=== PATIENT | female | born 1960 | race Caucasian/White ===

== ENCOUNTER 2019-09-03 16:48 | Emergency (ER) | payer BC ==
[2019-09-03 17:26] LABS: ABSOLUTE EOSINOPHILS # (AUTO) 0.4 10^3/uL (0.0-0.6); ABSOLUTE LYMPHOCYTES (AUTO) 0.6 10^3/uL (0.5-4.7); ABSOLUTE MONOCYTES (AUTO) 0.7 10^3/uL (0.1-1.4); ABSOLUTE NEUT (AUTO) 3.9 10^3/uL (1.7-8.2); BASOPHILS % (AUTO) 0.6 % (0-2); EOSINOPHILS % (AUTO) 7.3 % (0-6); HEMATOCRIT 31.7 % (36.0-47.0); HEMOGLOBIN 10.8 g/dL (12.0-15.5); LYMPHOCYTES % (AUTO) 11.3 % (13-45); MEAN CORPUSCULAR HEMOGLOBIN 29.3 pg (27.0-33.4); MEAN CORPUSCULAR VOLUME 86 fl (80-97); PLATELET COUNT 529 10^3/uL (150-450); RED BLOOD COUNT 3.67 10^6/uL (3.72-5.28); SEGMENTED NEUTROPHILS % (AUTO) 68.8 % (42-78); TOTAL CELLS COUNTED % (AUTO) 100 %; WHITE BLOOD COUNT 5.7 10^3/uL (4.0-10.5)
--- NOTE | 2019-09-03 17:51 | ER Document Report ---
ED GI Bleed / Rectal Pain - General Chief Complaint: Rectal Bleeding Stated Complaint: RECTAL BLEED Time Seen by Provider: 09/03/19 16:59 Notes: HPI: Patient is a 58-year-old female that states for 4 weeks she has had some intermittent abdominal discomfort around the left umbilicus with some diarrhea. Patient had abdominal surgery one 1 year ago for an unknown procedure with Dr. Watts. She states it is mixed with blood. She states it hurts a little more with food. No history of inflammatory bowel disease. She denies fevers, back p ain, or dysuria. Patient 5 days ago went to an emergency department in [place] where she lives and had a hemoglobin that was unremarkable as well as a CT scan of the abdomen and pelvis. Patient states that it showed "similar to what I had before". She was discharged from the emergency department. She followed up with her surgeon the next day. She was placed on ciprofloxacin and Flagyl. She states she has been taking it only intermittently because it makes her nauseous. She states that her pain has not increased nor has of blood. But she is here visiting her daughter and thought she should get a "second opinion". She has an appointment with the surgeon on September 25 for colonoscopy. ROS: See HPI All other review of systems reviewed and otherwise negative Reviewed vital signs and nursing note as charted by RN. PHYSICAL EXAM: CONSTITUTIONAL: Alert and oriented and responds appropriately to questions. Well-appearing; well-nourished HEAD: Normocephalic; atraumatic EYES: Sclerae non-icteric and not pale ENT: Normal nose; no rhinorrhea; moist mucous membranes; pharynx without lesions noted NECK: Supple without meningismus; non-tender; no cervical lymphadenopathy, no masses CARD: Regular rate and rhythm; no murmurs; symmetric distal pulses RESP: Normal chest excursion without splinting or tachypnea; breath sounds clear and equal bilaterally ABD/GI: Normal bowel sounds; non-distended; midline scar; soft, no focal tenderness to deep palpation of all 4 quadrants of the abdomen. No abdominal bruits or palpable masses GI/: With mechanical reliability engineer present I did perform a rectal examination showed no perirectal lesions. No gross blood. Very minimally faint Hemoccult positive BACK: The back appears normal and is non-tender to palpation EXT: Normal ROM in all joints; non-tender to palpation; no edema SKIN: No acute lesions noted NEURO: CN 2-12 intact; 5/5 bilateral upper and lower extremity strength with sensation intact to light touch PSYCH: The patient's mood and manner are appropriate. Grooming and personal hygiene are appropriate. - Related Data Allergies/Adverse Reactions: No Known Allergies Allergy (Verified 09/03/19 16:57) Past Medical History - Social History Smoking Status: Never Smoker Frequency of alcohol use: None Drug Abuse: None Family History: Reviewed & Not Pertinent Patient has homicidal ideation: No Past Surgical History: Reports: Hx Abdominal Surgery Physical Exam - Vital signs Vitals: Temp 99.5 F 09/03/19 16:48 Course - Re-evaluation Re-evalutation: Given the above history and physical I did call and attempt to speak to Dr. Vera at [phone]. This was just an answering machine that calls back the next day. Patient is an extremely poor historian. I will therefore perform a repeat basic labs, hemoglobin level, CT scan of the abdomen and pelvis with contrast, and reassess. 09/03/19 20:09 Patient's labs as recorded. I have replaced the potassium both IV and p.o. Patient has had no diarrhea here. CT scan as recorded. Patient has no right upper quadrant abdominal tenderness. Patient denies any pain at this time. Hemoglobin as recorded. Patient already has a follow-up with her surgeon. Patient will be discharged home with strict return precautions and follow-up with her specialist with instructions regarding potassium replacement. - Vital Signs Vital signs: Temp Pulse Resp BP Pulse Ox 99.5 F 83 18 122/77 95 09/03/19 16:53 09/03/19 16:53 09/03/19 16:53 09/03/19 16:53 09/03/19 16:53 - Laboratory Result Diagrams: 09/03/19 17:08 09/03/19 17:08 Laboratory results interpreted by me: 09/03/19 09/03/19 17:08 17:08 RBC 3.67 L Hgb 10.8 L Hct 31.7 L RDW 15.0 H Plt Count 529 H Lymph % (Auto) 11.3 L Eos % (Auto) 7.3 H Sodium 135.6 L Potassium 2.8 L* Glucose 130 H AST 12 L Alkaline Phosphatase 133 H Discharge - Discharge Clinical Impression: Low serum potassium Diarrhea Qualifiers: Diarrhea type: unspecified type Qualified Code(s): R19.7 - Diarrhea, unspecified Abdominal pain Qualifiers: Abdominal location: unspecified location Qualified Code(s): R10.9 - Unspecified abdominal pain Condition: Good Disposition: HOME, SELF-CARE Additional Instructions: Come back immediately with any increased diarrhea, pain, fevers, increased blood in the stool, or any other acute problems. Please make sure that she follow-up with your specialist as scheduled. Please make sure you take the potassium supplements and eat a banana a day as discussed.
[2019-09-03 18:35] LABS: ALBUMIN 3.5 g/dL (3.5-5.0); ALKALINE PHOSPHATASE 133 U/L (38-126); ANION GAP 10 (5-19); ASPARTATE AMINO TRANSFERASE 12 U/L (14-36); BILIRUBIN,TOTAL 0.3 mg/dL (0.2-1.3); BLOOD UREA NITROGEN 7 mg/dL (7-20); CALCIUM 8.8 mg/dL (8.4-10.2); CARBON DIOXIDE 26 mmol/L (22-30); CHLORIDE 100 mmol/L (98-107); GLUCOSE 130 mg/dL (75-110); TOTAL PROTEIN 7.2 g/dL (6.3-8.2)
[2019-09-03 18:46] LABS: POTASSIUM 2.8 mmol/L (3.6-5.0)
[2019-09-03] MEDS ORDERED: POTASSIUM CHLORIDE 10 MEQ TABLET.ER PO ONE (18:57)
[2019-09-03] MEDS ORDERED: POTASSI CL 20 MEQ/50 ML RIDER 20 MEQ/50 ML RTUPB IV ONE (18:57)
--- NOTE | 2019-09-03 19:55 | RADIOLOGY REPORT (SQ) ---
EXAM DESCRIPTION: CT ABD/PELVIS WITH IV ONLY IMAGES COMPLETED DATE/TIME: 09/03/2019 7:43 pm REASON FOR STUDY: 33; diarrhea and abdominal discomfort COMPARISON: None. TECHNIQUE: CT scan of the abdomen and pelvis performed using helical scanning technique with dynamic intravenous contrast injection. No oral contrast. Images reviewed with lung, soft tissue, and bone windows. Reconstructed coronal and sagittal MPR images reviewed. Delayed images for evaluation of the urinary system also acquired. All images stored on PACS. All CT scanners at this facility use dose modulation, iterative reconstruction, and/or weight based d osing when appropriate to reduce radiation dose to as low as reasonably achievable (ALARA). [facility]: Dose Right [facility]: CareDose [facility]: Dose Right [facility]: Teradose 4D [facility]: [email or web address] CONTRAST TYPE AND DOSE: contrast/concentration: Isovue 350.00 mg/ml; Total Contrast Delivered: 86.0 ml; Total Saline Delivered: 44.0 ml RENAL FUNCTION: BUN 7 creatinine 0.67 RADIATION DOSE: . LIMITATIONS: None. FINDINGS: LOWER CHEST: No significant findings. No nodules or infiltrates. LIVER: Normal size. No masses. No dilated ducts. SPLEEN: Normal size. No focal lesions. PANCREAS: No masses. No significant calcifications. No adjacent inflammation or peripancreatic fluid collections. Pancreatic duct not dilated. GALLBLADDER: A gallstone is present. ADRENAL GLANDS: No significant masses or asymmetry. RIGHT KIDNEY AND URETER: No solid masses. No significant calcifications. No hydronephrosis or hyd roureter. LEFT KIDNEY AND URETER: No solid masses. No significant calcifications. No hydronephrosis or hydr oureter. AORTA AND VESSELS: No aneurysm. No dissection. Renal arteries, SMA, celiac without stenosis. RETROPERITONEUM: Mild mesenteric adenopathy. BOWEL AND PERITONEAL CAVITY: No masses or inflammatory changes. No free fluid or peritoneal masses. APPENDIX: Not identified. No pericecal inflammatory changes are seen. PELVIS: No mass. No free fluid. Normal bladder. ABDOMINAL WALL: No masses. No hernias. BONES: No significant or acute findings. OTHER: No other significant finding. IMPRESSION: Cholelithiasis. No evidence of cholecystitis. Mild mesenteric adenopathy. Correlate f or mesenteric adenitis. TECHNICAL DOCUMENTATION: JOB ID: [id number] Quality ID # [id number]: Final reports with documentation of one or more dose reduction techniques (e.g., Au tomated exposure control, adjustment of the mA and/or kV according to patient size, use of iterative reconstruction technique) 2010 [employer]- All Rights Reserved Reading location - IP/workstation name: [email or web address]
[2019-09-03 22:38] VITALS: BP 120/73
== END 2019-09-03 22:36 | disposition home or self-care (01) ==
LOC: ER 16:48
DX: R10.9 Unspecified abdominal pain (principal); R19.7 Diarrhea, unspecified; E87.6 Hypokalemia; R10.32 Left lower quadrant pain; K62.5 Hemorrhage of anus and rectum; Z98.890 Other specified postprocedural states
CPT/HCPCS: 99284; 96365; 96366; 36415; 85025; 80053; 74177; J3480